=== PATIENT | male | born 1995 | race Caucasian/White ===

== ENCOUNTER 2018-05-24 17:17 | Emergency (ER) | payer BC, MEDICAID ==
[2018-05-24 17:29] VITALS: BP 160/95
[2018-05-24] MEDS ORDERED: Sodium Chloride 0.9% 10 ML Syringe FLUSH PRN (17:39)
[2018-05-24] MEDS ORDERED: Sodium Chloride 0.9% 1,000 ML IV ONE (17:39)
[2018-05-24] MEDS ORDERED: Ondansetron 4 MG/2 ML SDV IV ONE (17:39)
[2018-05-24 18:15] LABS: ANION GAP 13.1; CHLORIDE,CL 100 mmol/L (101-111); SODIUM,NA 136 mmol/L (135-145)
[2018-05-24] MEDS ORDERED: Potassium Chloride 10 MEQ Tab.ER PO ONE (18:23)
--- NOTE | 2018-05-24 18:28 | EDM.PDOC ---
Scribed by Nathaly Almanzar 05/24/18 1722 for Virgilio Freedman MD ED HPI GENERAL MEDICAL PROBLEM - General Chief Complaint: Cardiovascular Problem Stated Complaint: HIGH HEART RATE [id number] Time Seen by Provider: 05/24/18 17:20 Source of Information: Reports: Patient, RN, RN Notes Reviewed History Limitations: Reports: No Limitations - History of Present Illness INITIAL COMMENTS - FREE TEXT/NARRATIVE: Patient presents to ER with complaint of rapid heart rate and aching pain in his left axilla for the past several hours. Denies cough, wheezing, shortness of breath, radiating pain or any other symptoms. He states that he has now developed chills, generalized body aches and nausea. Onset: Today, Unknown/Unsure Duration: Constant Location: Reports: Chest Quality: Reports: Ache Severity: Moderate Improves with: Reports: None Worsens with: Reports: None Associated Symptoms: Reports: No Other Symptoms Left Lower Mid-Anterior Chest Pain Score (Numeric/FACES): 6 - Related Data Allergies Allergy/AdvReac Type Severity Reaction Status Date / Time No Known Allergies Allergy Verified 04/05/15 11:30 Home Meds: Home Meds Escitalopram [Lexapro] 20 mg PO DAILY 04/05/15 [History] Sertraline [Zoloft] 1 tab PO DAILY 08/10/15 [History] Past Medical History - Past Health History Medical/Surgical History: Denies Medical/Surgical History Psychiatric History: Reports: Anxiety, Depression Social & Family History - Family History Family Medical History: Noncontributory - Tobacco Use Smoking Status *Q: Current Every Day Smoker Tobacco Use Within Last Twelve Months: Cigarettes (and vaping) - Recreational Drug Use Recreational Drug Use: Yes Drug Use in Last 12 Months: No Recreational Drug Type: Reports: Marijuana/Hashish Recreational Drug Use Frequency: Patient Refuses To Answer - Living Situation & Occupation Living situation: Reports: with Family ED ROS GENERAL - Review of Systems Review Of Systems: ROS reveals no pertinent complaints other than HPI. ED EXAM, GENERAL - Physical Exam Exam: See Below Exam Limited By: No Limitations General Appearance: Alert, WD/WN, No Apparent Distress, Anxious Eye Exam: Bilateral Eye: Normal Inspection Nose: Normal Inspection, Normal Mucosa, No Blood Throat/Mouth: Normal Inspection, Normal Lips, Normal Teeth, Normal Gums, Normal Oropharynx, Normal Voice, No Airway Compromise Head: Atraumatic, Normocephalic Neck: Normal Inspection, Supple, Non-Tender, Full Range of Motion Respiratory/Chest: No Respiratory Distress, Lungs Clear, Normal Breath Sounds, No Accessory Muscle Use, Chest Non-Tender Cardiovascular: Normal Peripheral Pulses, Regular Rate, Rhythm, No Edema, No Gallop, No JVD, No Murmur, No Rub, Tachycardia GI/Abdominal: Normal Bowel Sounds, Soft, Non-Tender, No Organomegaly, No Distention, No Abnormal Bruit, No Mass Back Exam: Normal Inspection Extremities: Normal Inspection, Normal Range of Motion, Non-Tender, Normal Capillary Refill, No Pedal Edema Neurological: Alert, Oriented, CN II-XII Intact, Normal Cognition, Normal Gait, No Motor/Sensory Deficits Psychiatric: Anxious Skin Exam: Warm, Dry, Intact, Normal Color, No Rash EKG INTERPRETATION EKG Date: 05/24/18 Time: 17:28 Rhythm: Other (sinus rhythm) Rate (Beats/Min): 98 [place]: Normal P-Wave: Present QRS: Other (wave in anterolateral leads and inferior leads. Lateral Q waves, probably normal variation.) ST-T: Normal QT: Normal Comparison: NA - No Prior EKG Course - Vital Signs Last Recorded V/S: Last Vital Signs Temp 36.2 C 05/24/18 17:28 Pulse 114 H 05/24/18 17:28 Resp 16 05/24/18 17:28 BP 160/95 H 05/24/18 17:28 Pulse Ox 98 05/24/18 17:28 - Orders/Labs/Meds Orders: Active Orders 24 hr Category Date Time Status EKG 12 Lead [EKG Documentation Completion] [] STAT Care 05/24/18 17:21 Active Peripheral IV Care [RC] . DIRECTED Care 05/24/18 17:39 Active CULTURE STREP A CONFIRMATION [] Stat Lab 05/24/18 17:39 Results CULTURE URINE [] Stat Lab 05/24/18 18:06 Received STREP SCRN A RAPID W CULT CONF [] Stat Lab 05/24/18 17:39 Results UA W/MICROSCOPIC [URIN] Stat Lab 05/24/18 18:06 Results Potassium Chloride [Klor-Con 10] Med 05/24/18 18:23 Once 40 meq PO ONETIME ONE Sodium Chloride 0.9% [Normal Saline] 1,000 ml Med 05/24/18 17:39 Active IV .BOLUS Sodium Chloride 0.9% [Saline Flush] Med 05/24/18 17:39 Active 10 ml FLUSH ASDIRECTED PRN Peripheral IV Insertion Adult [OM.PC] Stat Oth 05/24/18 17:38 Ordered Medication Orders Sodium Chloride (Normal Saline) 1,000 mls @ 999 mls/hr IV .BOLUS ONE Stop: 05/24/18 18:39 Last Admin: 05/24/18 17:53 Dose: 999 mls/hr Sodium Chloride (Saline Flush) 10 ml FLUSH ASDIRECTED PRN PRN Reason: Keep Vein Open Last Admin: 05/24/18 17:53 Dose: 10 ml Labs: Laboratory Tests 05/24/18 05/24/18 05/24/18 Range/Units 17:38 17:45 17:45 WBC 8.0 (5.0-10.0) 10^3/uL RBC 5.15 (4.6-6.2) 10^6/uL Hgb 16.3 (14.0-18.0) g/dL Hct 45.1 (40.0-54.0) % MCV 87.6 (80-100) fL MCH 31.7 (27.0-34.0) pg MCHC 36.1 H (33.0-35.0) g/dL Plt Count 226 (150-450) 10^3/uL Neut % (Auto) 54.3 (42.2-75.2) % Lymph % (Auto) 32.6 (20.5-50.1) % [place] % (Auto) 10.7 H (2-8) % Eos % (Auto) 1.9 (1.0-3.0) % Baso % (Auto) 0.5 (0.0-1.0) % D-Dimer, Quantitative < 100 (0-400) ng/mL Sodium (135-145) mmol/L Potassium (3.6-5.0) mmol/L Chloride (101-111) mmol/L Carbon Dioxide (21.0-31.0) mmol/L Anion Gap BUN (7-18) mg/dL Creatinine (0.6-1.3) mg/dL Est Cr Clr Drug Dosing mL/min Estimated GFR (MDRD) BUN/Creatinine Ratio Glucose (74-105) mg/dL Calcium (8.4-10.2) mg/dl Total Bilirubin (0.2-1.0) mg/dL AST (10-42) IU/L ALT (10-60) IU/L Alkaline Phosphatase (42-121) IU/L Troponin I (0.00-0.02) ng/ml Total Protein (6.7-8.2) g/dl Albumin (3.2-5.5) g/dl Globulin Albumin/Globulin Ratio Amylase (28-100) U/L Lipase (22-51) U/L Urine Color (YELLOW) Urine Appearance (CLEAR) Urine pH (5.0-9.0) Ur Specific [place] (1.005-1.030) Urine Protein (NEGATIVE) Urine Glucose (UA) (NEGATIVE) Urine Ketones (NEGATIVE) Urine Occult Blood (NEGATIVE) Urine Nitrite (NEGATIVE) Urine Bilirubin (NEGATIVE) Urine Urobilinogen (0.2-1.0) mg/dL Ur Leukocyte Esterase (NEGATIVE) Urine Opiates Screen Negative (NEGATIVE) Ur Oxycodone Screen Negative (NEGATIVE) Urine Methadone Screen Negative (NEGATIVE) Ur Barbiturates Screen Negative (NEGATIVE) U Tricyclic Antidepress Negative (NEGATIVE) Ur Phencyclidine Scrn Negative (NEGATIVE) Ur Amphetamine Screen Negative (NEGATIVE) U Methamphetamines Scrn Negative (NEGATIVE) Urine MDMA Screen Negative (NEGATIVE) U Benzodiazepines Scrn Negative (NEGATIVE) Urine Cocaine Screen Negative (NEGATIVE) U Marijuana (THC) Screen Negative (NEGATIVE) 05/24/18 05/24/18 Range/Units 17:45 18:06 WBC (5.0-10.0) 10^3/uL RBC (4.6-6.2) 10^6/uL Hgb (14.0-18.0) g/dL Hct (40.0-54.0) % MCV (80-100) fL MCH (27.0-34.0) pg MCHC (33.0-35.0) g/dL Plt Count (150-450) 10^3/uL Neut % (Auto) (42.2-75.2) % Lymph % (Auto) (20.5-50.1) % [place] % (Auto) (2-8) % Eos % (Auto) (1.0-3.0) % Baso % (Auto) (0.0-1.0) % D-Dimer, Quantitative (0-400) ng/mL Sodium 136 (135-145) mmol/L Potassium 3.1 L (3.6-5.0) mmol/L Chloride 100 L (101-111) mmol/L Carbon Dioxide 26.0 (21.0-31.0) mmol/L Anion Gap 13.1 BUN 9 (7-18) mg/dL Creatinine 0.9 (0.6-1.3) mg/dL Est Cr Clr Drug Dosing 144.11 mL/min Estimated GFR (MDRD) > 60 BUN/Creatinine Ratio 10.00 Glucose 104 (74-105) mg/dL Calcium 9.1 (8.4-10.2) mg/dl Total Bilirubin 1.2 H (0.2-1.0) mg/dL AST 28 (10-42) IU/L ALT 27 (10-60) IU/L Alkaline Phosphatase 88 (42-121) IU/L Troponin I < 0.02 (0.00-0.02) ng/ml Total Protein 7.7 (6.7-8.2) g/dl Albumin 4.6 (3.2-5.5) g/dl Globulin 3.1 Albumin/Globulin Ratio 1.48 Amylase 72 (28-100) U/L Lipase 25 (22-51) U/L Urine Color Yellow (YELLOW) Urine Appearance Clear (CLEAR) Urine pH 7.0 (5.0-9.0) Ur Specific [place] 1.010 (1.005-1.030) Urine Protein Negative (NEGATIVE) Urine Glucose (UA) Negative (NEGATIVE) Urine Ketones Negative (NEGATIVE) Urine Occult Blood Negative (NEGATIVE) Urine Nitrite Negative (NEGATIVE) Urine Bilirubin Negative (NEGATIVE) Urine Urobilinogen 0.2 (0.2-1.0) mg/dL Ur Leukocyte Esterase Small H (NEGATIVE) Urine Opiates Screen (NEGATIVE) Ur Oxycodone Screen (NEGATIVE) Urine Methadone Screen (NEGATIVE) Ur Barbiturates Screen (NEGATIVE) U Tricyclic Antidepress (NEGATIVE) Ur Phencyclidine Scrn (NEGATIVE) Ur Amphetamine Screen (NEGATIVE) U Methamphetamines Scrn (NEGATIVE) Urine MDMA Screen (NEGATIVE) U Benzodiazepines Scrn (NEGATIVE) Urine Cocaine Screen (NEGATIVE) U Marijuana (THC) Screen (NEGATIVE) Meds: Medications Generic Name Dose Route Start Last Admin Trade Name Freq PRN Reason Stop Dose Admin Sodium Chloride 1,000 mls @ 999 mls/hr 05/24/18 17:39 05/24/18 17:53 Normal Saline IV 05/24/18 18:39 999 mls/hr .BOLUS ONE Administration Sodium Chloride 10 ml 05/24/18 17:39 05/24/18 17:53 Saline Flush FLUSH 10 ml ASDIRECTED PRN Administration Keep Vein Open Discontinued Medications Generic Name Dose Route Start Last Admin Trade Name Louie PRN Reason Stop Dose Admin Ondansetron HCl 4 mg 05/24/18 17:39 05/24/18 17:53 Zofran IV 05/24/18 17:40 4 mg ONETIME ONE Administration - Radiology Interpretation Free Text/Narrative:: CXR: no acute process, see Rad. report. Departure - Departure Time of Disposition: 18:24 Disposition: Home, Self-Care 01 Condition: Good Clinical Impression: Tachycardia, Nausea, Hypokalemia Instructions: Sinus Tachycardia, Nausea, Adult, Potassium Content of Foods Forms: ED Department Discharge Additional Instructions: Rx: Zofran 4mg Rx: Potassium 20mEq Rest and drink plenty of water. Follow up in clinic if not improved in 3 days. Ask your clinic doctor to recheck your potassium - My Orders Last 24 Hours: My Active Orders 05/24/18 17:21 EKG 12 Lead [EKG Documentation Completion] [RC] STAT 05/24/18 17:38 Peripheral IV Insertion Adult [OM.PC] Stat 05/24/18 17:39 Peripheral IV Care [RC] . DIRECTED CULTURE STREP A CONFIRMATION [RM] Stat STREP SCRN A RAPID W CULT CONF [RM] Stat Sodium Chloride 0.9% [Normal Saline] 1,000 ml IV .BOLUS Sodium Chloride 0.9% [Saline Flush] 10 ml FLUSH ASDIRECTED PRN 05/24/18 18:06 CULTURE URINE [RM] Stat UA W/MICROSCOPIC [URIN] Stat 05/24/18 18:23 Potassium Chloride [Klor-Con 10] 40 meq PO ONETIME ONE - Assessment/Plan Last 24 Hours: My Active Orders 05/24/18 17:21 EKG 12 Lead [EKG Documentation Completion] [RC] STAT 05/24/18 17:38 Peripheral IV Insertion Adult [OM.PC] Stat 05/24/18 17:39 Peripheral IV Care [RC] . DIRECTED CULTURE STREP A CONFIRMATION [RM] Stat STREP SCRN A RAPID W CULT CONF [RM] Stat Sodium Chloride 0.9% [Normal Saline] 1,000 ml IV .BOLUS Sodium Chloride 0.9% [Saline Flush] 10 ml FLUSH ASDIRECTED PRN 05/24/18 18:06 CULTURE URINE [RM] Stat UA W/MICROSCOPIC [URIN] Stat 05/24/18 18:23 Potassium Chloride [Klor-Con 10] 40 meq PO ONETIME ONE I have read and agree with the documentation that has been completed regarding this visit. By signing this record, I attest that the documentation was completed in my physical presence and is an accurate record of the encounter.
== END 2018-05-24 18:43 | disposition home or self-care (01) ==
LOC: DL.ED 17:17
DX: R00.0 Tachycardia, unspecified (principal); E87.6 Hypokalemia; R11.0 Nausea; F41.9 Anxiety disorder, unspecified; F32.9 Major depressive disorder, single episode, unspecified; F17.210 Nicotine dependence, cigarettes, uncomplicated; Z79.899 Other long term (current) drug therapy
CPT/HCPCS: 36415; 71046; 80053; 80305; 81001; 82150; 83690; 84484; 85025; 85379; 87081; 87086; 87430; 87804; 93005; 96361; 96374; 99284; A9270; J2405; J7030

== ENCOUNTER 2020-06-23 14:31 | Emergency (ER) | payer BC, MEDICAID ==
[2020-06-23 14:53] VITALS: BP 143/80; PULSE 78
--- NOTE | 2020-06-23 15:03 | CR ---
PROCEDURE INFORMATION: Exam: XR Abdomen, 2 Views Exam date and time: 06/23/2020 2:38 PM Age: 25 years old Clinical indication: Abdominal pain; Generalized TECHNIQUE: Imaging protocol: XR of the abdomen. Views: 2 Views. COMPARISON: CT Abdomen Pelvis wo Cont 08/08/2015 3:59 PM FINDINGS: Gastrointestinal tract: A moderate amount of stool is noted within the rectosigmoid colon. The bowel gas pattern is nonobstructive and nonspecific. Intraperitoneal space: Normal. No free air. Bones/joints: Unremarkable for age. IMPRESSION: 1. A moderate amount of stool is noted within the rectosigmoid colon. 2. The bowel gas pattern is nonobstructive and nonspecific.
[2020-06-23] MEDS ORDERED: HYDROmorphone 1 MG/ML Syringe IVPUSH ONE (15:09)
[2020-06-23] MEDS ORDERED: Ondansetron 4 MG/2 ML SDV IV ONE (15:09)
[2020-06-23] MEDS ORDERED: Sodium Chloride 0.9% 10 ML Syringe FLUSH PRN (15:09)
[2020-06-23] MEDS ORDERED: Sodium Chloride 0.9% 1,000 ML IV ONE (15:09)
[2020-06-23] MEDS ORDERED: Iopamidol 612 MG/ML 100 ML Bottle IVPUSH ONE (15:10)
[2020-06-23 15:14] LABS: ANION GAP 17.5 mEq/L (7-13); CHLORIDE,CL 99 mmol/L (98-107); SODIUM,NA 139 mmol/L (136-145)
[2020-06-23] MEDS ORDERED: Lidocaine 2% Jelly 10 ML Urojet ONE (15:46)
[2020-06-23] MEDS ORDERED: Bisacodyl 5 MG Tab PO ONE (15:46)
[2020-06-23] MEDS ORDERED: Lactulose Soln 10 GM/15 ML 30 ML UD Cup PO ONE ×2 (15:47→18:05)
--- NOTE | 2020-06-23 15:53 | CT ---
PROCEDURE INFORMATION: Exam: CT Abdomen And Pelvis Without Contrast Exam date and time: 06/23/2020 3:32 PM Age: 25 years old Clinical indication: Abdominal pain; Localized; Right lower quadrant (rlq); Patient HX: Wbc: 6.1, no fever; Additional info: Rlq pain, suspected appendicitis vs renal stone TECHNIQUE: Imaging protocol: Computed tomography of the abdomen and pelvis without contrast. Radiation optimization: All CT scans at this facility use at least one of these dose optimization techniques: automated exposure control; mA and/or kV adjustment per patient size (includes targeted exams where dose is matched to clinical indication); or iterative reconstruction. COMPARISON: CT Abdomen Pelvis wo Cont 08/08/2015 3:59 PM FINDINGS: Liver: 3.1 cm hypodense area present within the right lobe of the liver. Gallbladder and bile ducts: Normal. No calcified stones. No ductal dilation. Pancreas: Normal. No ductal dilation. Spleen: Normal. No splenomegaly. Adrenal glands: Normal. No mass. Kidneys and ureters: No renal calcifications or obstructive uropathy. Stomach and bowel: Mild thickening of the [place] of the descending colon consistent with mild colitis. Large amount of stool is noted within the rectosigmoid colon. Appendix: No evidence of appendicitis. Intraperitoneal space: Normal. No significant fluid collection. Vasculature: Unremarkable. No abdominal aortic aneurysm. Lymph nodes: Unremarkable. No enlarged lymph nodes. Urinary bladder: Unremarkable as visualized. Reproductive: Unremarkable as visualized. Bones/joints: Unremarkable. No acute fracture. Soft tissues: There are no soft tissue masses or fluid collections. IMPRESSION: 1. Mild thickening of the [place] of the descending colon consistent with mild colitis. 2. No evidence of appendicitis. 3. No renal calcifications or obstructive uropathy. 4. 3.1 cm hypodense area present within the right lobe of the liver. This may represent a cyst or hemangioma. Other etiologies not excluded. 5. Large amount of stool is noted within the rectosigmoid colon.
[2020-06-23] MEDS ORDERED: LORazepam 2 MG/ML SDV IVPUSH ONE (16:46)
--- NOTE | 2020-06-23 18:06 | EDM.PDOC ---
Scribed by Nathaly Almanzar 06/23/20 0887 for Mani Freedman MD ED HPI GENERAL MEDICAL PROBLEM - General Chief Complaint: Abdominal Pain Stated Complaint: CONSTIPATION HURTS Time Seen by Provider: 06/23/20 15:03 Source of Information: Reports: Patient, RN, RN Notes Reviewed History Limitations: Reports: No Limitations - History of Present Illness INITIAL COMMENTS - FREE TEXT/NARRATIVE: Patient presents to ED by POV with complaints of "constipation". The pain is more generalized to the right side, does still have his appendix. His last bowel movement was 2 days ago. Denies nausea or vomiting. Pt states that his rectum hurts too much when he strains to have a BM. - Related Data Allergies Allergy/AdvReac Type Severity Reaction Status Date / Time No Known Allergies Allergy Verified 05/24/18 18:32 Past Medical History - Past Health History Medical/Surgical History: Denies Medical/Surgical History Psychiatric History: Reports: Anxiety, Depression Social & Family History - Family History Family Medical History: No Pertinent Family History - Caffeine Use Caffeine Use: Reports: Soda - Living Situation & Occupation Living situation: Reports: with Family ED ROS GENERAL - Review of Systems Review Of Systems: Comprehensive ROS is negative, except as noted in HPI. ED EXAM, GI/ABD - Physical Exam Exam: See Below Exam Limited By: No Limitations General Appearance: Alert, WD/WN, Mild Distress. No: Active Emesis Eyes: Bilateral: Normal Appearance (No scleral icterus) Nose: Normal Inspection Throat/Mouth: Normal Voice, No Airway Compromise Head: Atraumatic, Normocephalic Neck: Normal Inspection Respiratory/Chest: No Respiratory Distress, Lungs Clear, Normal Breath Sounds, No Accessory Muscle Use, Chest Non-Tender Cardiovascular: Regular Rate, Rhythm GI/Abdominal Exam: Normal Bowel Sounds, Soft, No Distention, Guarding (RLQ), Rebound (RLQ), Tender (RLQ). No: Rigid (Male) Exam: Deferred Rectal (Males) Exam: Deferred Back Exam: Normal Inspection, Full Range of Motion. No: CVA Tenderness (L), CVA Tenderness (R), Vertebral Tenderness Extremities: Normal Inspection Neurological: Alert, Oriented, No Motor/Sensory Deficits Psychiatric: Anxious Skin Exam: Warm, Dry, Intact, Normal Color, No Rash Course - Vital Signs Last Recorded V/S: Last Vital Signs Temp 97.3 F 06/23/20 14:50 Pulse 78 06/23/20 14:50 Resp 18 06/23/20 14:50 BP 143/80 H 06/23/20 14:50 Pulse Ox 99 06/23/20 14:50 - Orders/Labs/Meds Orders: Active Orders 24 hr Category Date Time Status Enema [RC] ASDIRECTED Care 06/23/20 15:47 Active Enema [RC] ASDIRECTED Care 06/23/20 18:04 Ordered Peripheral IV Care [RC] . DIRECTED Care 06/23/20 15:09 Active Lactulose [Cephulac] Med 06/23/20 18:05 Once 20 gm PO ONETIME ONE Sodium Chloride 0.9% [Saline Flush] Med 06/23/20 15:09 Active 10 ml FLUSH ASDIRECTED PRN Peripheral IV Insertion Adult [OM.PC] Stat Oth 06/23/20 15:09 Ordered Medication Orders Sodium Chloride (Saline Flush) 10 ml FLUSH ASDIRECTED PRN PRN Reason: Keep Vein Open Last Admin: 06/23/20 15:16 Dose: 10 ml Documented by: DIVINA Labs: Laboratory Tests 06/23/20 06/23/20 Range/Units 14:48 14:48 WBC 6.1 (5.0-10.0) 10^3/uL RBC 5.21 (4.6-6.2) 10^6/uL Hgb 16.3 (14.0-18.0) g/dL Hct 45.4 (40.0-54.0) % MCV 87.1 (80-100) fL MCH 31.3 (27.0-34.0) pg MCHC 35.9 H (33.0-35.0) g/dL Plt Count 248 (150-450) 10^3/uL Neut % (Auto) 52.4 (42.2-75.2) % Lymph % (Auto) 36.5 (20.5-50.1) % [place] % (Auto) 8.8 H (2-8) % Eos % (Auto) 2.0 (1.0-3.0) % Baso % (Auto) 0.3 (0.0-1.0) % Sodium 139 (136-145) mmol/L Potassium 3.5 (3.5-5.1) mmol/L Chloride 99 (98-107) mmol/L Carbon Dioxide 26 (21-32) mmol/L Anion Gap 17.5 H (7-13) mEq/L BUN 12 (7-18) mg/dL Creatinine 1.01 (0.70-1.30) mg/dL Est Cr Clr Drug Dosing 131.51 mL/min Estimated GFR (MDRD) > 60 BUN/Creatinine Ratio 11.9 (No establ ref range) Glucose 104 H (74-99) mg/dL Calcium 9.4 (8.5-10.1) mg/dL Total Bilirubin 0.6 (0.2-1.0) mg/dL AST 26 (15-37) U/L ALT 63 (16-63) U/L Alkaline Phosphatase 100 (46-116) U/L Total Protein 8.5 H (6.4-8.2) g/dL Albumin 4.8 (3.4-5.0) g/dL Globulin 3.7 Albumin/Globulin Ratio 1.3 Meds: Medications Generic Name Dose Route Start Last Admin Trade Name Louie PRN Reason Stop Dose Admin Sodium Chloride 10 ml 06/23/20 15:09 06/23/20 15:16 Saline Flush FLUSH 10 ml ASDIRECTED PRN Administration Keep Vein Open Discontinued Medications Generic Name Dose Route Start Last Admin Trade Name Louie PRN Reason Stop Dose Admin Bisacodyl 10 mg 06/23/20 15:46 06/23/20 16:25 Dulcolax PO 06/23/20 15:47 10 mg ONETIME ONE Administration Hydromorphone HCl 1 mg 06/23/20 15:09 06/23/20 15:15 Dilaudid IVPUSH 06/23/20 15:10 1 mg ONETIME ONE Administration Sodium Chloride 1,000 mls @ 999 mls/hr 06/23/20 15:09 06/23/20 15:14 Normal Saline IV 06/23/20 16:09 999 mls/hr .BOLUS ONE Administration Iopamidol 100 ml 06/23/20 15:10 Isovue-300 (61%) IVPUSH 06/23/20 15:11 ONETIME ONE Lactulose 20 gm 06/23/20 15:47 06/23/20 15:59 Cephulac PO 02/07/21 15:48 20 gm ONETIME ONE Administration Lidocaine HCl 10 ml 06/23/20 15:46 06/23/20 16:33 Xylocaine 2% Jelly .XX 06/23/20 15:47 10 ml ONETIME ONE Administration Lorazepam 1 mg 06/23/20 16:46 06/23/20 16:52 Ativan IVPUSH 06/23/20 16:47 1 mg ONETIME ONE Administration Ondansetron HCl 4 mg 06/23/20 15:09 06/23/20 15:14 Zofran IV 06/23/20 15:10 4 mg ONETIME ONE Administration - Radiology Interpretation Free Text/Narrative:: [facility] [place] [facility] Final Radiology Report Call: [phone] assistance Online chat: [email or web address] Name: TANK LAIRD Age: 25Years M Date: 06/23/2020 SSN: -- : 1995 Study: CR ABDOMEN 2V AP FLAT UPRIGHT Requesting Physician: MANI FREEDMAN Images: 3 Addl Studies: Provided Clinical History: abdominal pain Contrast: Contrast Medium: Contrast Amount: Contrast Method: CONFIDENTIALITY STATEMENT This report is intended only for use by the referring physician, and only in accordance with law. If you received this in error, call [phone]. Page 1 of 1 PROCEDURE INFORMATION: Exam: XR Abdomen, 2 Views Exam date and time: 06/23/2020 2:38 PM Age: 25 years old Clinical indication: Abdominal pain; Generalized TECHNIQUE: Imaging protocol: XR of the abdomen. Views: 2 Views. COMPARISON: CT Abdomen Pelvis wo Cont 08/08/2015 3:59 PM FINDINGS: Gastrointestinal tract: A moderate amount of stool is noted within the rectosigmoid colon. The bowel gas pattern is nonobstructive and nonspecific. Intraperitoneal space: Normal. No free air. Bones/joints: Unremarkable for age. IMPRESSION: 1. A moderate amount of stool is noted within the rectosigmoid colon. 2. The bowel gas pattern is nonobstructive and nonspecific. Thank you for allowing us to participate in the care of your patient. Dictated and Authenticated by: Omer Patrick DO 06/23/2020 3:03 PM Central Time ([place] & [place]) [facility] [place] [facility] Final Radiology Report Call: [phone] assistance Online chat: [email or web address] Name: TANK LAIRD Age: 25Years M Date: 06/23/2020 SSN: -- : [id number] Study: CT ABDOMEN PELVIS WO CONT Requesting Physician: MANI FREEDMAN Images: [id number] Addl Studies: Provided Clinical History: RLQ pain, suspected appendicitis VS renal stone Contrast: Without Contrast Medium: Contrast Amount: Contrast Method: Page 1 of 2 PROCEDURE INFORMATION: Exam: CT Abdomen And Pelvis Without Contrast Exam date and time: 06/23/2020 3:32 PM Age: 25 years old Clinical indication: Abdominal pain; Localized; Right lower quadrant (rlq); Patient HX: Wbc: 6.1, no fever; Additional info: Rlq pain, suspected appendicitis vs renal stone TECHNIQUE: Imaging protocol: Computed tomography of the abdomen and pelvis without contrast. Radiation optimization: All CT scans at this facility use at least one of these dose optimization techniques: automated exposure control; mA and/or kV adjustment per patient size (includes targeted exams where dose is matched to clinical indication); or iterative reconstruction. COMPARISON: CT Abdomen Pelvis wo Cont 08/08/2015 3:59 PM FINDINGS: Liver: 3.1 cm hypodense area present within the right lobe of the liver. Gallbladder and bile ducts: Normal. No calcified stones. No ductal dilation. Pancreas: Normal. No ductal dilation. Spleen: Normal. No splenomegaly. Adrenal glands: Normal. No mass. Kidneys and ureters: No renal calcifications or obstructive uropathy. Stomach and bowel: Mild thickening of the [place] of the descending colon consistent with mild colitis. Large amount of stool is noted within the rectosigmoid colon. Appendix: No evidence of appendicitis. Intraperitoneal space: Normal. No significant fluid collection. Vasculature: Unremarkable. No abdominal aortic aneurysm. Lymph nodes: Unremarkable. No enlarged lymph nodes. Urinary bladder: Unremarkable as visualized. TANK LAIRD | Final Radiology Report CONFIDENTIALITY STATEMENT This report is intended only for use by the referring physician, and only in accordance with law. If you received this in error, call [phone]. Page 2 of 2 Reproductive: Unremarkable as visualized. Bones/joints: Unremarkable. No acute fracture. Soft tissues: There are no soft tissue masses or fluid collections. IMPRESSION: 1. Mild thickening of the [place] of the descending colon consistent with mild colitis. 2. No evidence of appendicitis. 3. No renal calcifications or obstructive uropathy. 4. 3.1 cm hypodense area present within the right lobe of the liver. This may represent a cyst or hemangioma. Other etiologies not excluded. 5. Large amount of stool is noted within the rectosigmoid colon. Thank you for allowing us to participate in the care of your patient. Dictated and Authenticated by: Omer Patrick DO 06/23/2020 3:52 PM Central Time ([place] & [place]) - Re-Assessments/Exams Free Text/Narrative Re-Assessment/Exam: 06/23/20 18:05 RN reports pt had a hard BM and wishes to go home. Departure - Departure Time of Disposition: 18:05 Disposition: Home, Self-Care 01 Condition: Good Clinical Impression: Fecal impaction in rectum Constipation Qualifiers: Constipation type: other constipation type Qualified Code(s): K59.09 - Other constipation - Discharge Information *PRESCRIPTION DRUG MONITORING PROGRAM REVIEWED*: Not Applicable *COPY OF PRESCRIPTION DRUG MONITORING REPORT IN PATIENT [place]: Not Applicable Instructions: Constipation, Adult, Fecal Impaction Forms: ED Department Discharge Additional Instructions: Rx: Miralax Use the Fleets Enema as soon as you get home. Drink plenty of water. Eat fresh fruits and vegetables. Do no eat bread, rice, potato, banana, pasta/noodles, or cheese. Follow up in clinic this week if not completely improved. Sepsis Event Note (ED) - Evaluation Sepsis Screening Result: No Definite Risk - Focused Exam Vital Signs: Vital Signs Temp Pulse Resp BP Pulse Ox 06/23/20 14:50 97.3 F 78 18 143/80 H 99 - My Orders Last 24 Hours: My Active Orders 06/23/20 15:09 Peripheral IV Care [RC] . DIRECTED Sodium Chloride 0.9% [Saline Flush] 10 ml FLUSH ASDIRECTED PRN Peripheral IV Insertion Adult [OM.PC] Stat 06/23/20 15:47 Enema [RC] ASDIRECTED 06/23/20 18:04 Enema [RC] ASDIRECTED 06/23/20 18:05 Lactulose [Cephulac] 20 gm PO ONETIME ONE - Assessment/Plan Last 24 Hours: My Active Orders 06/23/20 15:09 Peripheral IV Care [RC] . DIRECTED Sodium Chloride 0.9% [Saline Flush] 10 ml FLUSH ASDIRECTED PRN Peripheral IV Insertion Adult [OM.PC] Stat 06/23/20 15:47 Enema [RC] ASDIRECTED 06/23/20 18:04 Enema [RC] ASDIRECTED 06/23/20 18:05 Lactulose [Cephulac] 20 gm PO ONETIME ONE I have read and agree with the documentation that has been completed regarding this visit. By signing this record, I attest that the documentation was completed in my physical presence and is an accurate record of the encounter.
== END 2020-06-23 18:25 | disposition home or self-care (01) ==
LOC: DL.ED 14:31
DX: K59.09 Other constipation (principal)
CPT/HCPCS: 36415; 74019; 74176; 80053; 85025; 96374; 96375; 99284; A9270; J1170; J2060; J2405; J7030; 99283